=== PATIENT | female | born 1995 ===

== ENCOUNTER 2017-12-17 16:42 | Outpatient (CLI) | payer OTHER | END 2017-12-17 19:12 | disposition home or self-care (01) | LOC: M LDO 16:42 | DX: O47.1 False labor at or after 37 completed weeks of gestation (principal); Z3A.39 39 weeks gestation of pregnancy | CPT/HCPCS: 59025 ==

== ENCOUNTER 2017-12-19 08:47 | Inpatient (IN) | payer OTHER ==
[2017-12-19] MEDS: PENICILLIN G POTASSIUM IV 2.5 MU in APPROPRIATE DILUENT 1 EA IV ×3 (00:30→18:28)
[2017-12-19] MEDS ORDERED: LR 1,000 ML IV (09:46)
[2017-12-19 10:21] LABS: HEMATOCRIT 35.1 % (36.0-47.0); HEMOGLOBIN 10.7 g/dl (12.0-15.5); MEAN CORPUSCULAR HEMOGLOBIN 22.9 pg (27.0-33.0); MEAN CORPUSCULAR HGB CONC 30.5 g/dl (32.0-36.5); PLATELET COUNT, AUTOMATED 238 10^3/uL (150-450); RED BLOOD COUNT 4.68 10^6/uL (4.00-5.40); RED CELL DISTRIBUTION WIDTH 15.9 % (11.5-14.5); WHITE BLOOD COUNT 13.1 10^3/uL (4.0-10.0)
[2017-12-19] MEDS: LACTATED RINGER'S 1000 ML IV (10:49)
[2017-12-19] MEDS: PENICILLIN G POTASSIUM IV 5 MU in D5W MINI-BAG PLUS 100 ML IV (10:49)
[2017-12-19 11:34] LABS: AMPHETAMINES URINE REFLEX NEGATIVE (NEGATIVE); BARBITURATES URINE REFLEX NEGATIVE (NEGATIVE); BENZODIAZEPINES URINE REFLEX NEGATIVE (NEGATIVE); CANNABINOIDS URINE REFLEX NEGATIVE (NEGATIVE); COCAINE METABOLITE URINE REFLE NEGATIVE (NEGATIVE); METHADONE URINE REFLEX NEGATIVE (NEGATIVE); OPIATES URINE REFLEX NEGATIVE (NEGATIVE); PHENCYCLIDINE URINE REFLEX NEGATIVE (NEGATIVE)
[2017-12-19] MEDS: LR 1,000 ML IV ×2 (11:57→15:18)
[2017-12-19] MEDS ORDERED: FENTANYL 2MCG/ML ROPIVACAINE 0.2% IN 0.9% NACL 200ML IVBAG As Ordered (14:46)
[2017-12-19] MEDS ORDERED: ePHEDrine SULFATE 25 MG/5 ML(5MG/ML) SYRINGE IV (15:30)
[2017-12-19] MEDS ORDERED: FENTANYL/ROPIVACAINE/NACL BAG 200 ML EPIDURAL (15:30)
[2017-12-19] MEDS ORDERED: LACTATED RINGER'S 1000 ML IV (15:30)
[2017-12-19] MEDS ORDERED: ONDANSETRON 4MG/2ML VIAL (J2405) IV (15:30)
[2017-12-19] MEDS ORDERED: EPIDURAL/PCA KEYS XX (15:30)
[2017-12-19] MEDS ORDERED: REFRIGERATOR IV KEYS XX (15:30)
[2017-12-19] MEDS ORDERED: EPIDURAL COMMENT XX (15:30)
[2017-12-19] MEDS ORDERED: diphenhydrAMINE INJ 50MG/ML VIAL (J1200) IV (15:30)
[2017-12-19] MEDS ORDERED: NALOXONE INJ 0.4 MG/1 ML VIAL (J2310) IV (15:30)
[2017-12-19] MEDS: OXYTOCIN DRIP 30 UNITS in APPROPRIATE DILUENT 1 EA IV (18:08)
[2017-12-20] MEDS ORDERED: ONDANSETRON 4MG/2ML VIAL (J2405) IV (01:30)
[2017-12-20] MEDS ORDERED: METHYLERGONOVINE MALEATE 0.2 MG TAB PO (01:30)
[2017-12-20] MEDS ORDERED: ACETAMINOPHEN 500 MG TAB PO (01:30)
[2017-12-20] MEDS ORDERED: DIBUCAINE 1% OINTMENT 30GM TOP (01:30)
[2017-12-20] MEDS ORDERED: RHOGAM 300 MCG (1500 IU) INJ (J2790) IM (01:30)
[2017-12-20] MEDS ORDERED: MEASLES,MUMPS,RUBELLA VACCINE INJ (MMR-II) (90707) SC (01:30)
[2017-12-20] MEDS ORDERED: MOM 30ML SUSPENSION UDC PO (01:30)
[2017-12-20] MEDS ORDERED: DOCUSATE SODIUM 100 MG CAP PO (01:30)
[2017-12-20] MEDS ORDERED: PROMETHAZINE 25 MG TAB PO (01:30)
[2017-12-20] MEDS: LR 1,000 ML IV (01:41)
[2017-12-20] MEDS: PRENATAL VITAMINS CHEWABLE TABLET PO (07:51)
[2017-12-20] MEDS: IBUPROFEN 800 MG TAB PO (07:52)
[2017-12-21] MEDS: PRENATAL VITAMINS CHEWABLE TABLET PO (08:31)
== END 2017-12-21 12:00 | disposition home or self-care (01) | DRG 775 ==
LOC: M LDO 08:47 → M OBS 12-20 01:26 → M LDI 09:36
PROVIDERS: Student in an Organized Health Care Education/Training Program
PROC: 10E0XZZ Delivery of Products of Conception, External Approach (ICD-10-PCS; principal; 2017-12-19)
PROC: 0HQ9XZZ Repair Perineum Skin, External Approach (ICD-10-PCS; 2017-12-19)
DX: O42.02 Full-term premature rupture of membranes, onset of labor within 24 hours of rupture (principal); O99.824 Streptococcus B carrier state complicating childbirth; Z3A.39 39 weeks gestation of pregnancy; O70.0 First degree perineal laceration during delivery; Z37.0 Single live birth